=== PATIENT | female | born 1980 | race Caucasian/White ===

== ENCOUNTER 2017-11-18 08:25 | Emergency (ER) | payer OTHER, MEDICARE, SELFPAY ==
[~2017-11-18] VITALS: Ht 149.9 cm; Wt 67.1 kg
[~2017-11-18 08:25] MED LIST: AUGMENTIN; BIRTH CONTROL; BUSP10 PO; CELE200 PO; Colace100 MG PO; DESV50 PO; DULO60 PO; Diclofenac Pota50 MG PO; EMBREL; ETANERCEPT; FOLI1 PO; IBUP800 PO; METTREX2.5 PO; OXYACE5T PO; PRED20 PO; PSEU120ER PO; Prenatal Compl1 EACH PO; Prilosec Otc20 MG; RANI150 PO; Z-PACK PO
[2017-11-18] MEDS ORDERED: BUPR100ER PO (08:53)
[2017-11-18] MEDS ORDERED: Celexa40 MG PO (08:53)
[2017-11-18] MEDS ORDERED: Remicade100 MG IV (08:53)
[2017-11-18] MEDS ORDERED: LEFL20 PO (08:53)
[2017-11-18] MEDS ORDERED: CYCL10 PO (11:08)
== END 2017-11-18 11:10 | disposition home or self-care (01) ==
LOC: ER 08:25
DX: S39.012A Strain of muscle, fascia and tendon of lower back, initial encounter (principal); W18.30XA Fall on same level, unspecified, initial encounter; Z79.899 Other long term (current) drug therapy; F41.9 Anxiety disorder, unspecified
CPT/HCPCS: 72100; 96374; 99283; J1885

== ENCOUNTER → 2018-03-28 | Outpatient (CLI) | payer OTHER, MEDICARE, SELFPAY ==
[~2018-03-28] MED LIST changes: +BUPR100ER PO; +CYCL10 PO; +Celexa40 MG PO; +LEFL20 PO; +Remicade100 MG IV
[2018-03-30 14:08] LABS: HPV 16 Negative (Negative); HPV 18 Negative (Negative); HPV OTHER HR TYPES Negative (Negative)
== END | disposition home or self-care (01) ==
LOC: LAB 11:58 → LAB SHORT 11:58
PROVIDERS: Obstetrics & Gynecology
DX: Z01.419 Encounter for gynecological examination (general) (routine) without abnormal findings (principal)
CPT/HCPCS: 87624; G0123

== ENCOUNTER → 2018-07-09 | Outpatient (CLI) | payer OTHER, MEDICARE | LOC: LAB EV 15:13 → LAB SHORT 15:13 | DX: R35.0 Frequency of micturition (principal) | CPT/HCPCS: 87086 ==

== ENCOUNTER → 2018-08-24 | Outpatient (CLI) | payer OTHER, MEDICARE ==
[2018-08-24 17:18] LABS: Appearance, Urine Turbid (Clear); Bilirubin, Urine Neg (Neg); Blood, Urine 3+ (Neg); Color, Urine Yellow (P-Yellow); Glucose Qualitative, Urine Neg (Neg); Ketones, Urine Neg (Neg); Leukocyte Esterase, Urine Neg (Neg); Nitrite, Urine Neg (Neg); Protein, Urine Neg (Neg); Specific Gravity, Urine 1.015 (1.003-1.022); Urobilinogen, Urine 1+ (Normal)
[2018-08-24 17:26] LABS: Squamous Epithelial Cells Few /hpf (Few)
[2018-08-24 17:27] LABS: White Blood Cells, Urine Not Seen /hpf (0-5)
[2018-08-24 17:28] LABS: Amorphous Mod (0-Heavy); Bacteria Few /hpf; Red Blood Cells, Urine Not Seen /hpf (0-2)
== END | disposition home or self-care (01) ==
LOC: LAB SRC 10:52 → LAB SHORT 10:52
PROVIDERS: Registered Nurse
DX: N39.41 Urge incontinence (principal)
CPT/HCPCS: 81001

== ENCOUNTER 2019-03-16 23:46 | Emergency (ER) | payer OTHER, MEDICARE ==
[~2019-03-16] VITALS: Ht 149.9 cm; Wt 58.5 kg
[2019-03-17] MEDS ORDERED: OXCA150 PO (01:28)
[2019-03-17] MEDS ORDERED: LITH300C PO (01:28)
== END 2019-03-17 04:04 | disposition home or self-care (01) ==
LOC: ER 23:46
DX: G50.0 Trigeminal neuralgia (principal); Z79.899 Other long term (current) drug therapy
CPT/HCPCS: 96374; 96375; 99283; J1100; J1200; J1885; J2765; J3010

== ENCOUNTER → 2019-07-20 | Outpatient (CLI) | payer OTHER, MEDICARE ==
[~2019-07-20] MED LIST changes: +LITH300C PO; +OXCA150 PO
== END | disposition home or self-care (01) ==
LOC: LAB SHORT 14:38 → PLD 14:38
DX: D22.5 Melanocytic nevi of trunk (principal)
CPT/HCPCS: 88305

== ENCOUNTER 2021-06-25 02:54 | Day surgery (SDC) | payer BC, MEDICARE ==
--- NOTE | 2021-06-18 08:49 | NUR ---
Pt cancelled her appointment for today.
[2021-06-25] MEDS ORDERED: LAMO100 PO (09:47)
[2021-06-25] MEDS ORDERED: NAPR500 PO (09:48)
[2021-06-25] MEDS ORDERED: PRED5 PO (09:48)
[2021-06-25] MEDS ORDERED: SERT50 PO (09:48)
[2021-06-25] MEDS ORDERED: SIMPONI AR50 MG/4 M1 IV (09:49)
[2021-06-25] MEDS ORDERED: TRAM50 PO (09:50)
== END 2021-06-25 10:35 | disposition home or self-care (01) ==
LOC: ATC 02:54
DX: E04.1 Nontoxic single thyroid nodule (principal)
CPT/HCPCS: 80400; 82533; J0834

== ENCOUNTER → 2021-08-18 | Outpatient (CLI) | payer BC, MEDICARE ==
[~2021-08-18] MED LIST changes: +LAMO100 PO; +NAPR500 PO; +PRED5 PO; +SERT50 PO; +SIMPONI AR50 MG/4 M1 IV; +TRAM50 PO
[2021-08-18 15:29] LABS: Anion Gap 5 mmol/L (6-16); Blood Urea Nitrogen 10 mg/dL (8-24); Bun/Creatinine Ratio 17.2 (12.0-20.0); CO2, Blood 25 mmol/L (21-32); Calcium, Blood 9.2 mg/dL (8.5-10.1); Chloride, Blood 109 mmol/L (98-108); Creatinine, Blood 0.58 mg/dL (0.40-1.00); Glomerular Filtration Rate >60 (60-); Glucose, Blood 82 mg/dL (70-99); Potassium, Blood 4.8 mmol/L (3.5-5.5); Sodium, Blood 139 mmol/L (136-145)
== END | disposition home or self-care (01) ==
LOC: LAB SHORT 09:10
PROVIDERS: Family Medicine
DX: Z13.228 Encounter for screening for other metabolic disorders (principal)
CPT/HCPCS: 80048

== ENCOUNTER 2022-01-18 20:40 | Emergency (ER) | payer BC, MEDICARE ==
[~2022-01-18] VITALS: Ht 147.3 cm; Wt 55.4 kg
[2022-01-18] MEDS ORDERED: ABAT250V (21:38)
== END 2022-01-19 00:23 | disposition home or self-care (01) ==
LOC: ER 20:40
DX: M71.22 Synovial cyst of popliteal space [Baker], left knee (principal); M06.9 Rheumatoid arthritis, unspecified; Z79.899 Other long term (current) drug therapy
CPT/HCPCS: 36415; 93971

== ENCOUNTER → 2022-10-12 | Outpatient (CLI) | payer BC, MEDICARE ==
[~2022-10-12] MED LIST changes: +ABAT250V
[2022-10-12 14:39] LABS: Candida species (DNA Probe) Negative (NEGATIVE); G. vaginalis (DNA Probe) Positive (NEGATIVE); T. vaginalis (DNA Probe) Negative (NEGATIVE)
== END | disposition home or self-care (01) ==
LOC: LAB 09:24 → LAB SHORT 09:24
PROVIDERS: Student in an Organized Health Care Education/Training Program
DX: N89.8 Other specified noninflammatory disorders of vagina (principal)
CPT/HCPCS: 87480; 87510; 87660